=== PATIENT | female | born 1960 | race Asian ===

== ENCOUNTER 2023-02-14 16:58 | Emergency (ER) | payer OTHER ==
[~2023-02-14] VITALS: Ht 152.4 cm; Wt 74.8 kg
[2023-02-14 17:11] VITALS: BP 142/73
--- NOTE | 2023-02-14 17:17 | NUR ---
PT AMBULATED TO ER BED 5
--- NOTE | 2023-02-14 17:39 | NUR ---
62 Y/O FEMALE BIB SON C/O INTERMITTENT SHARP LEFT SIDED CP, BURNING EPIGASTRIC PAIN. DENIES ANY NVD, SOB. WAS SEEN BY PCP AND REQUESTED MORE COMPREHENSIVE CARDIAC TESTING. PMH: HTN, DM, CHOLESTEROL
[2023-02-14] MEDS ORDERED: ACETAMINOPHEN EXTRA STRENGTH 500 MG TAB PO ONE (18:15)
[2023-02-14] MEDS ORDERED: ALUMINUM HYD/MAG/SIMETHICONE 30 ML UDC PO ONE (18:15)
[2023-02-14 18:18] LABS: BASOPHILS % (AUTO) 0.5 % (0.0-2.0); EOSINOPHILS # (AUTO) 0.1 K/uL (0-0.4); EOSINOPHILS % (AUTO) 1.4 % (0.0-4.0); HEMATOCRIT 37.3 % (36-48); HEMOGLOBIN 12.4 g/dL (12.0-16.0); LYMPHOCYTES # (AUTO) 2.9 K/uL (2.5-16.5); LYMPHOCYTES % (AUTO) 40.8 % (20.5-51.1); MEAN CORPUSCULAR HEMOGLOBIN 26 pg (27-31); MEAN CORPUSCULAR HGB CONC 33 g/dL (33-37); MEAN CORPUSCULAR VOLUME 77.6 fL (80-94); MONOCYTES # (AUTO) 0.6 K/uL (0.8-1.0); MONOCYTES % (AUTO) 7.6 % (1.7-9.3); NEUTROPHILS # (AUTO) 3.6 K/uL (1.8-7.7); NEUTROPHILS % (AUTO) 49.7 % (42.2-75.2); PLATELET COUNT (AUTO) 299 K/uL (140-450); RED BLOOD CELL COUNT(AUTO) 4.81 MIL/uL (4.20-5.40); RED CELL DISTRIBUTION WIDTH 13.8 % (11.6-13.7); WHITE BLOOD COUNT (AUTO) 7.2 K/uL (4.8-10.8)
[2023-02-14 18:40] LABS: ALBUMIN 3.5 g/dL (3.4-5.0); ANION GAP 9.2 (8-16); ASPARTATE AMINOTRANSFERASE 30 U/L (15-37); CARBON DIOXIDE 34.9 mmol/L (21-32); CHLORIDE 106 mmol/L (98-107); GFR ARICAN-AMERICAN 73 mL/min (>90); GLUCOSE 98 mg/dL (74-106); POTASSIUM 4.1 mmol/L (3.5-5.1); SODIUM SERUM 146 mmol/L (136-145); TOTAL BILIRUBIN 0.4 mg/dL (0.0-1.0); UREA NITROGEN, BLOOD 11 mg/dL (7-18)
--- NOTE | 2023-02-14 19:18 | NUR ---
Pt report given to STEVE SANON. Transfer of care at this time.
[2023-02-14] MEDS ORDERED: ACET-9800 PO (19:20)
[2023-02-14] MEDS ORDERED: MAG-27 PO (19:20)
--- NOTE | 2023-02-14 19:21 | NUR ---
Patient resting in bed, A/Ox4, chest rise and fall symmetrical, no c/o pain or s/s of distress, on monitor
[2023-02-14 19:27] VITALS: BP 108/74
== END 2023-02-14 19:32 | disposition home or self-care (01) ==
LOC: MED 16:58
DX: R07.9 Chest pain, unspecified (principal); E11.9 Type 2 diabetes mellitus without complications; I10 Essential (primary) hypertension; Z86.73 Personal history of transient ischemic attack (TIA), and cerebral infarction without residual deficits; Z79.4 Long term (current) use of insulin; Z79.899 Other long term (current) drug therapy
CPT/HCPCS: 36415; 71045; 80053; 84484; 85025; 93005; 99285